=== PATIENT | male | born 1945 | race Caucasian/White ===

== ENCOUNTER 2016-09-03 06:16 | Emergency (ER) | payer OTHER ==
[~2016-09-03] VITALS: Ht 180.3 cm; Wt 78.0 kg
[2016-09-03] MEDS ORDERED: SILVER NITRATE APPLICATOR STICK TOP ONE (09:15)
[2016-09-03 09:21] LABS: BASOPHILS % 0.4 % (0.0-2.0); EOSINOPHILS % 0.3 % (0.0-5.0); HEMATOCRIT. 44.7 % (42.0-52.0); HEMOGLOBIN. 15.3 g/dL (14.0-18.0); LYMPHOCYTES % 11.5 % (20.0-50.0); MEAN CORPUSCULAR HEMOGLOBIN 31.5 pg (28.0-32.0); MEAN PLATELET VOLUME 8.3 fl (7.4-10.4); MONOCYTES % 6.9 % (2.0-8.0); NEUTROPHILS % 80.9 % (40.0-76.0); PLATELET 220 x1000/uL (130-400); RED BLOOD CELL COUNT 4.85 mill/uL (4.7-6.1); RED CELL DISTRIBUTION WIDTH 14.8 % (11.6-14.6)
[2016-09-03 09:41] LABS: CARBON DIOXIDE 31 mEq/L (21-32); CHLORIDE 102 mEq/L (98-107)
[2016-09-03] MEDS ORDERED: COCAINE 4% TOPICAL SOLN 4ML TOP ONE (09:45)
[2016-09-03 09:46] LABS: INR 2.9; PARTIAL THROMBOPLASTIN TIME 40.4 sec (24.0-34.0); PROTHROMBIN TIME 30.6 sec
[2016-09-03 11:50] VITALS: BP 143/77
== END 2016-09-03 12:29 | disposition home or self-care (01) ==
LOC: ER 09:01
DX: R04.0 Epistaxis (principal); I10 Essential (primary) hypertension; M33.90 Dermatopolymyositis, unspecified, organ involvement unspecified; Z86.718 Personal history of other venous thrombosis and embolism; Z79.01 Long term (current) use of anticoagulants
CPT/HCPCS: 36415; 80053; 85025; 85610; 85730; 86850; 86900; 86901; 99284; Z7610